=== PATIENT | female | born 1960 | race Two or more races ===

== ENCOUNTER 2025-03-07 10:12 | Day surgery (SDC) | payer OTHER ==
[2025-02-27 09:22] VITALS: BP 115/78
[2025-02-27 09:34] LABS: URINE APPEARANCE Clear; URINE BILIRRUBIN Negative (NEGATIVE); URINE BLOOD Negative; URINE COLOR Yellow; URINE GLUCOSE Negative (NEGATIVE); URINE KETONE Negative (NEGATIVE); URINE LEUKOCYTE Negative; URINE NITRATE Negative; URINE PROTEIN Negative (NEGATIVE); URINE UROBILINOGEN 0.2 E.U./dl
[2025-02-27 09:36] LABS: URINE EPITHELIAL CELLS 1.8 uL (0.0-38.8); URINE WBC 2.6 uL (0.0-23.2)
[2025-02-27 09:41] LABS: HEMATOCRIT 43.6 % (36.0-45.00); HEMOGLOBIN 14.7 g/dL (12.0-15.00); MEAN CELL VOLUME 86.3 fL (80.00-100.00); MEAN CORPUSCULAR HEMOGLOBIN 29.1 pg (27.00-32.0); MEAN CORPUSCULAR HGB CONC 33.8 g/dl (32.0-36.0); PLATELET COUNT 361 K/uL (150-450); RED BLOOD COUNT 5.06 M/uL (4.00-6.00); RED CELL DISTRIBUTION WIDTH 14.2 % (11.5-14.5)
[2025-02-27 09:42] LABS: URINE BACTERIA 2.4 uL (0.0-1933); URINE RBC 1.9 uL (0.0-20.8)
[2025-02-27 10:15] LABS: PARTIAL THROMBOPLASTIN TIME 28.8 SECONDS (22.0-34.0); PROTHROMBIN TIME 10.9 SECONDS (9.0-11.5)
[2025-02-27 10:21] LABS: ALBUMIN 3.9 gm/dL (3.4-5.0); BILIRUBIN TOTAL 0.54 mg/dL (0.3-1.2); CALCIUM 9.9 mg/dL (8.5-10.1); CREATININE SERUM 0.77 mg/dL (0.55-1.02); GFR 75.23; GLOBULINA 3.5 G/DL (2.4-3.5); POTASSIUM 4.3 mEq/L (3.5-5.1); TOTAL PROTEIN 7.4 gm/dL (6.4-8.2)
[~2025-03-07] VITALS: Ht 162.6 cm; Wt 70.8 kg
[2025-03-07] MEDS ORDERED: POVIDONE-IODINE 118 ML BOTT TOP ONE (12:39)
[2025-03-07] MEDS ORDERED: RINGERS SOLUTION,LACTATED 1,000 ML IV SCH (13:45)
== END 2025-03-07 17:40 | disposition home or self-care (01) ==
LOC: CIR.AMB 10:12
PROVIDERS: ATTEND Obstetrics & Gynecology
DX: D06.9 Carcinoma in situ of cervix, unspecified (principal); Z88.6 Allergy status to analgesic agent